=== PATIENT | female | born 1980 | race Caucasian/White ===

== ENCOUNTER 2020-07-23 10:14 | Observation (INO) | payer OTHER ==
[~2020-07-23] VITALS: Ht 167.6 cm; Wt 106.6 kg
[2020-07-23 11:10] LABS: HEMOGLOBIN 13.2 gm/dl (12.3-15.3); RED BLOOD COUNT 4.36 M/UL (4.00-5.10); WHITE BLOOD COUNT 8.9 K/UL (4.5-11.0)
[2020-07-23 11:41] LABS: BUN/CREATININE RATIO 22 (0-10)
[2020-07-23] MEDS ORDERED: DEPAKOTE ER500 MG PO (12:52)
[2020-07-23] MEDS ORDERED: ELAVIL 50 MG TA50 MG PO (12:52)
[2020-07-23] MEDS ORDERED: ABILIFY15 MG PO (12:53)
[2020-07-23] MEDS ORDERED: BUPRENORPHIN-N1 EACH SL (12:53)
[2020-07-23] MEDS ORDERED: CYMBALTA60 MG PO (12:54)
[2020-07-23] MEDS ORDERED: NEURONTIN600 MG PO (12:54)
[2020-07-23] MEDS ORDERED: LANTUS SOL100 UNIT/1 SC ×2 (12:55)
[2020-07-23] MEDS ORDERED: PLAVIX 75 MG TA75 MG PO (12:55)
[2020-07-23] MEDS ORDERED: NOVOLOG FL100 UNIT/1 SC (12:55)
[2020-07-23] MEDS ORDERED: TOPROL XL50 MG PO (12:56)
[2020-07-23] MEDS ORDERED: ZESTRIL10 MG PO (12:56)
[2020-07-23] MEDS ORDERED: ROBAXIN-750750 MG PO (12:57)
[2020-07-23] MEDS ORDERED: TYLENOL325 MG PO (12:57)
[2020-07-23] MEDS ORDERED: OZEMPIC1 MG/0.71 SC (12:57)
[2020-07-23] MEDS ORDERED: LIPITOR80 MG PO (12:58)
[2020-07-23] MEDS ORDERED: VENTOLIN HFA 66.7 GM INH (12:58)
[2020-07-23] MEDS ORDERED: GLUCOPHAGE1000 MG PO (12:59)
[2020-07-23] MEDS ORDERED: TUMS ULTRA400 MG PO (13:19)
[2020-07-24 05:26] LABS: HEMOGLOBIN 12.2 gm/dl (12.3-15.3); RED BLOOD COUNT 4.09 M/UL (4.00-5.10); WHITE BLOOD COUNT 7.6 K/UL (4.5-11.0)
[2020-07-24 05:52] LABS: BUN/CREATININE RATIO 22 (0-10)
[2020-07-25 05:29] LABS: HEMOGLOBIN 12.1 gm/dl (12.3-15.3); RED BLOOD COUNT 4.01 M/UL (4.00-5.10); WHITE BLOOD COUNT 6.5 K/UL (4.5-11.0)
[2020-07-25 05:50] LABS: BUN/CREATININE RATIO 21 (0-10)
[2020-07-25] MEDS ORDERED: ASPIRIN EC81 MG PO (13:58)
[2020-07-25] MEDS ORDERED: CLEOCIN HCL300 MG PO (13:58)
[2020-07-26 01:09] LABS: PROTEIN C-FUNCTIONAL 177 % (73-180); PROTEIN S-FUNCTIONAL 119 % (63-140)
== END 2020-07-25 15:10 | disposition other institution (70) ==
LOC: ER1 10:14 → MED SURG 4 12:17 → CDU 12:17 → MED SURG 4 15:37
PROVIDERS: Family Medicine; Physician Assistant; Psychiatry & Neurology Neurology; ADMIT Internal Medicine
DX: R53.1 Weakness (principal); R47.81 Slurred speech; H53.2 Diplopia; I69.322 Dysarthria following cerebral infarction; I69.320 Aphasia following cerebral infarction; I69.398 Other sequelae of cerebral infarction; H53.47 Heteronymous bilateral field defects; F32.9 Major depressive disorder, single episode, unspecified; E11.621 Type 2 diabetes mellitus with foot ulcer; L97.512 Non-pressure chronic ulcer of other part of right foot with fat layer exposed; I10 Essential (primary) hypertension; E78.5 Hyperlipidemia, unspecified; J45.909 Unspecified asthma, uncomplicated; I25.10 Atherosclerotic heart disease of native coronary artery without angina pectoris; Z20.822 Contact with and (suspected) exposure to COVID-19; Z88.1 Allergy status to other antibiotic agents; Z88.8 Allergy status to other drugs, medicaments and biological substances
CPT/HCPCS: ECHO; 36415; 70450; 70496; 70498; 70551; 71045; 80048; 80053; 80202; 82550; 82553; 82962; 83036; 83874; 84484; 84703; 85025; 85220; 85302; 92507; 92610; 93306; 96374; 96376; 97161; 97165; 99285; G0378; J0692; J2270; J3370; J7070; Q9967; U0002

== ENCOUNTER 2020-08-09 15:42 | Emergency (ER) | payer OTHER ==
[~2020-08-09 15:42] MED LIST: ABILIFY15 MG PO; ASPIRIN EC81 MG PO; BUPRENORPHIN-N1 EACH SL; CLEOCIN HCL300 MG PO; CYMBALTA60 MG PO; DEPAKOTE ER500 MG PO; ELAVIL 50 MG TA50 MG PO; GLUCOPHAGE1000 MG PO; LANTUS SOL100 UNIT/1 SC; LIPITOR80 MG PO; NEURONTIN600 MG PO; NOVOLOG FL100 UNIT/1 SC; OZEMPIC1 MG/0.71 SC; PLAVIX 75 MG TA75 MG PO; ROBAXIN-750750 MG PO; TOPROL XL50 MG PO; TUMS ULTRA400 MG PO; TYLENOL325 MG PO; VENTOLIN HFA 66.7 GM INH; ZESTRIL10 MG PO
[2020-08-09 19:58] LABS: HEMOGLOBIN 13.9 gm/dl (12.3-15.3); RED BLOOD COUNT 4.55 M/UL (4.00-5.10); WHITE BLOOD COUNT 11.2 K/UL (4.5-11.0)
[2020-08-09 20:24] LABS: BUN/CREATININE RATIO 27 (0-10)
[2020-08-09] MEDS ORDERED: PHENERGAN 12.12.5 M1 PO (23:37)
[2020-08-09] MEDS ORDERED: VANCOCIN 125 M125 MG PO (23:37)
== END 2020-08-10 00:01 | disposition home or self-care (01) ==
LOC: ER1 15:42
PROVIDERS: Preventive Medicine Occupational Medicine
DX: R10.31 Right lower quadrant pain (principal); R10.32 Left lower quadrant pain; R11.2 Nausea with vomiting, unspecified; I25.10 Atherosclerotic heart disease of native coronary artery without angina pectoris; Z88.1 Allergy status to other antibiotic agents; F17.210 Nicotine dependence, cigarettes, uncomplicated
CPT/HCPCS: 80053; 81001; 83690; 85025; 85652; 86140; 87086; 99284; J7030; Q9967